=== PATIENT | female | born 1970 | race Caucasian/White ===

== ENCOUNTER 2025-03-15 06:00 | Day surgery (SDC) | payer OTHER ==
[2025-03-11 10:05] VITALS: BP 150/91
[~2025-03-15] VITALS: Ht 152.4 cm; Wt 63.0 kg
[~2025-03-15 06:00] MED LIST: CEFAZOLIN SODIUM 1,000 MG VIAL ONE; CLINDAMYCIN PHOSPHATE 150 MG/ML (900mg) ONE; LOSARTAN POTASS50 MG PO
[2025-03-15] MEDS ORDERED: TRANEXAMIC ACID 100MG/1ML (1000MG) AMPUL ONE (06:31)
[2025-03-15] MEDS ORDERED: GENTAMICIN SULFATE 40 MG/ML VIAL ONE (06:31)
[2025-03-15] MEDS ORDERED: CEFAZOLIN SODIUM 1,000 MG VIAL ONE ×2 (06:32→08:11)
[2025-03-15] MEDS ORDERED: POVIDONE-IODINE 118 ML BOTT TOP ONE (06:32)
[2025-03-15] MEDS ORDERED: POVIDONE-IODINE SCRUB 118 ML BOTT TOP ONE (06:32)
[2025-03-15] MEDS ORDERED: EPINEPHRINE HCL/PF 1 MG/ML AMPUL ONE (06:33)
[2025-03-15] MEDS ORDERED: NITROGLYCERIN 1 INCH OINT..GM. TD ONE (06:33)
[2025-03-15] MEDS ORDERED: CLINDAMYCIN PHOSPHATE 150 MG/ML (900mg) ONE (08:11)
== END 2025-03-15 14:30 | disposition home or self-care (01) ==
LOC: CIR.AMB 06:00
PROVIDERS: ATTEND Surgery
DX: D05.11 Intraductal carcinoma in situ of right breast (principal); N65.0 Deformity of reconstructed breast; Z90.11 Acquired absence of right breast and nipple; Z91.040 Latex allergy status